=== PATIENT | female | born 1980 | race Caucasian/White ===

== ENCOUNTER 2020-10-19 14:13 | Emergency (ER) | payer OTHER, MEDICARE, SELFPAY ==
[2020-10-19 14:19] VITALS: BP 157/97; PULSE 96; RESP 18; TEMP 37.1; O2SAT 96; BMI 33.4
[2020-10-19] MEDS: EPINEPHrine 1 mg/mL INJ 0.3 MG IM (14:49)
[2020-10-19 14:52] VITALS: BP 163/121; PULSE 99; RESP 24; O2SAT 100
[2020-10-19] MEDS: famotidine 20 mg/2 mL INJ 40 MG IVP (15:03)
[2020-10-19] MEDS: diphenhydrAMINE 50 mg/mL SDV 1mL 25 MG IVP (15:03)
[2020-10-19] MEDS: sodium chloride 0.9% 1,000 ML 999 ML IV (15:04)
--- NOTE | 2020-10-19 15:07 | ED_ITS ---
HPI - Allergic Reaction General: Chief complaint: Allergic Reaction Stated complaint: 6 BEE STINGS - ALLERGIC TO BEES Time Seen by Provider: 10/19/20 14:23 Source: patient Mode of arrival: ambulatory Limitations: no limitations History of Present Illness: HPI narrative: 40-year-old female patient presents to the emergency department with bee stings to the face and left arm. She has previous history of yellowjacket stings which led to anaphylaxis and hospitalization in the past. She states does not carry an EpiPen due to financial constraints. She has not taken [id number] medication prior to arrival. She reports her face is hurting her jaw is hurting and her lip is starting to swell. MD complaint: allergic reaction, hives and facial swelling Onset (ago): minute(s) (30) Exposure: insect bite Associated symptoms: Reports facial swelling and lip swelling; Deny abdominal pain, nausea or vomiting Severity: moderate Treatment prior to arrival: none Previous Allergic Reaction History: prior ED visit(s) and anaphylaxis Review of Systems General: Reports: 10 or more systems reviewed and unremarkable except in HPI and below Const: Denies: fever(s), chills or diaphoresis Eyes: Denies: blurry vision or eye redness ENMT: Denies: throat pain, dental pain or disequilibrium Card: Denies: chest pain, palpitations or irregular heart rhythm Resp: Denies: dyspnea, productive cough, non-productive cough or wheezing GI: Denies: abdominal pain, nausea or vomiting : Denies: difficulty voiding or dysuria Musc: Denies: neck pain, back pain or joint pain Skin/Breast: Reports: skin tenderness, skin swelling and changes in skin color; Denies: rash or pruritus Neuro: Denies: headache(s), weakness in extremities or behavioral changes Psych: Reports: anxiety; Denies: depression, sleeping more or change in appetite Shawn/Lymph: Denies: easy bruising All/Imm: Reports: facial swelling PFS ED PFSH: Medical History (Updated 10/19/20 @ 15:45 by LOUIE Wharton) Anaphylactic reaction Physical Exam Const: COMMON NORMALS: no acute distress, patient oriented x3, healthy appearing and well nourished GENERAL APPEARANCE: cooperative, anxious and well hydrated ORIENTATION/CONSCIOUSNESS: Yes awake, Yes oriented to person, Yes oriented to place and Yes oriented to time HENMT: COMMON NORMALS: normocephalic, EAC's normal, Normal external nose present and moist oral mucous membranes HEAD & SCALP: normal to inspection and normocephalic FACE & SINUS: sinuses nontender, erythema bilaterally, edema (lip and chin) on the left and Facial tenderness on exam of face and sinuses bilaterally NOSE: Normal external nose present and No nasal polyps present EXTERNAL AUDITORY CANAL: EAC's normal MOUTH: tongue normal and lip abnormal (edema to the upper lateral lip) THROAT: tonsils normal, uvula midline and posterior oropharynx abnormal cobblestoning and erythema Eye: COMMON NORMALS: Equal, round and reactive pupils present and EOMs intact bilaterally GENERAL EYE: appearance normal, both eyes and all related structures ALIGNMENT: Yes alignment normal PERIORBITAL: periorbital findings normal SCLERA: scleral abnormal Laterality of scleral abnormality: positive bilateral scleral injection PUPIL: Yes Equal, round and reactive pupils present Neck/C-Spine: COMMON NORMALS: full ROM and no lymphadenopathy GENERAL: Yes normal visual inspection and Yes trachea midline CERVICAL SPINE: Yes cervical ROM normal Lymph: LYMPHATIC: no lymphadenopathy noted Chest: COMMONS NORMALS: normal inspection of the chest and normal palpation of entire chest wall Resp: COMMON NORMALS: normal respiratory effort, No retractions, No use of accessory muscles and clear to auscultation bilaterally EFFORT & INSPECTION: Yes able to speak in complete sentences AUSCULTATION: clear to auscultation bilaterally Cardio: COMMON NORMALS: regular rate, regular rhythm, S1 normal heart sound present, S2 normal heart sound present and Peripheral pulses 2+ throughout RATE: regular rate RHYTHM: regular rhythm HEART SOUNDS: S1 normal heart sound present and S2 normal heart sound present PERIPHERAL PULSES: Peripheral pulses 2+ throughout GI: COMMON NORMALS: Normal to inspection, nondistended, normoactive bowel sounds present, Soft to palpation and non-tender INSPECTION: Yes normal to inspection PALPATION: Yes Soft to palpation : COMMON NORMALS: Yes no CVA tenderness BLADDER/KIDNEY EXAM: Yes no CVA tenderness Back/Pelvis: COMMON NORMALS: no CVA tenderness and thoracic and lumbar spine normal to inspection Extremity: COMMON NORMALS: normal to inspection, full ROM, capillary refill normal and no pedal edema GENERAL: Yes normal exam except as noted Neuro: COMMON NORMALS: patient oriented x3 and no focal motor deficits SENSORIUM/ORIENTATION: Yes oriented to person, Yes oriented to place and Yes oriented to time Psych: COMMON NORMALS: mental status grossly normal, Normal thought process present and cooperative ACTIVITY/MOTOR BEHAVIOR: Yes appropriate eye contact THOUGHT PROCESS: Normal thought process present Skin: COMMON NORMALS: no rashes or lesions noted, no wounds, turgor normal, no petechiae and no mottling GENERAL SKIN EXAM: no rashes or lesions noted, elasticity normal and turgor normal OTHER: left medial elbow with edema from bee sting, skin erythema/edema localized Course Vital Signs: Vital signs: Vital Signs Temperature 98.7 F 10/19/20 14:19 Pulse Rate 98 10/19/20 16:54 Respiratory Rate 18 10/19/20 16:54 Blood Pressure 121/76 10/19/20 16:54 Pulse Oximetry 97 10/19/20 16:54 MDM - Allergic Reaction MDM Narrative: Medical decision making narrative: 40 year old female presents to the ED with allergic reaction, facial swelling and lip swelling after sustaining bee stings. She received IM epinephrine due to h/o anaphylaxis, she also received Solu-Medrol, Benadryl and Pepcid. She received Toradol due to onset of headache. She has history of migraines. During her stay, facial swelling, lip swelling completely resolved, her face returned to normal color. Redness of the skin resolved. Oxygen saturation remained 96 to 100%. Her headache resolved with Toradol. She is no longer complaining of headache or jaw pain. She was kept for 3 hours here in the ED, she was prescribed EpiPen in the event she is stung by further wasp/bees. Discharge Plan Discharge Patient Disposition: Home Clinical Impression: Accidental bee sting, H/O anaphylactic shock Allergic reaction Qualifiers: Encounter type: initial encounter Qualified Code(s): T78.40XA - Allergy, unspecified, initial encounter Condition: Stable Prescriptions: New epinephrine 0.3 mg/0.3 mL auto-injector 0.3 mg IM Q10M PRN (Reason: allergic reaction) Qty: 2 RF: 0 No Action duloxetine 20 mg capsule,delayed release(DR/EC) 40 mg PO DAILY@2200 RF: 0 Discharge Orders: Discharge ED (Routine); Ordered 10/19/20 Ordered By: Darlin Waite Discharge Diet: Usual diet Discharge Activity: Limit activity as instructed Patient Instructions: Insect Bite or Sting (ED), Anaphylaxis (ED), Opioid Safety Activity Restrictions/Additional Instructions: Return to the emergency department if you develop difficulty breathing, fever or nausea vomiting Rest at home today, cool compresses to the insect bite/bee stings to help with swelling and pain Benadryl 25 mg tablet; take 1 to 2 tablets every 4-6 hours as needed for pain/itching Coding Level of Care Code ED Plug Saw Operator for Deondre Fwd Exam Comprehensive
[2020-10-19 16:17] VITALS: BP 136/83; PULSE 97; RESP 18; O2SAT 98
[2020-10-19] MEDS: ketorolac 30 mg/mL INJ 15 MG IVP (16:18)
[2020-10-19 16:54] VITALS: BP 121/76; PULSE 98; RESP 18; O2SAT 97
[2020-10-19 17:56] VITALS: BP 145/82; PULSE 117; RESP 17; O2SAT 98
== END 2020-10-19 17:57 | disposition home or self-care (01) ==
PROVIDERS: Emergency Provider Nurse Practitioner Family
DX: T63.441A Toxic effect of venom of bees, accidental (unintentional), initial encounter (principal)
CPT/HCPCS: 96361; 96372; 96374; 96375; 99284; 99291; J0171; J1200; J1885; J2930; J3490; J7030

== ENCOUNTER 2023-03-30 09:25 | Emergency (ER) | payer BC, SELFPAY, MEDICARE ==
--- NOTE | 2023-03-30 09:33 | XR_ITS ---
WS: [id number] EXAMINATION: XR chest 1V portable [id number] REASON FOR EXAM: dyspnea/cough COMPARISON: None available. ORDER DATE: 03/30/2023 9:34 AM TECHNIQUE: A single, portable frontal chest x-ray was obtained. X-RAY FINDINGS: The lungs are clear. Pleural spaces are clear. No pleural effusions or pneumothorax. Cardiomediastinal silhouette is normal. No evidence for pulmonary edema. Soft tissue and osseous structures are unremarkable. No tubes or lines are present. IMPRESSION: Unremarkable frontal portable chest x-ray.
--- NOTE | 2023-03-30 09:33 | ECG_ITS ---
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 Measurements Intervals [place] Rate: 102 P: 57 [place]: 149 QRS: 66 QRSD: 95 T: 44 QT: 364 QTc: 475 Interpretive Statements SINUS TACHYCARDIA No previous ECG available for comparison Electronically Signed On 03-30-2023 10:28:16 CDT by Mandy Guillen M.D. [id number]
[2023-03-30 09:34] VITALS: BP 154/111; PULSE 106; RESP 24; TEMP 36.8; O2SAT 99; BMI 34.0
[2023-03-30 09:56] LABS: Basophils # 0.1 10^3/uL (0.0-0.1); Basophils % 0.8 %; Eosinophils # 0.2 10^3/uL (0.0-0.8); Eosinophils % 3.7 %; Hematocrit 35.4 % (36-47); Lymphocytes # 0.7 10^3/uL (0.8-4.8); Lymphocytes % 11.3 %; Mean Corpuscular HGB Conc 29.1 g/dL (30-55); Mean Corpuscular Hemoglobin 22.6 pg (27-33); Mean Corpuscular Volume 77.6 fl (85-98); Mean Platelet Volume 9.6 fL (7.4-10.4); Monocytes # 0.4 10^3/uL (0.2-0.9); Monocytes % 6.8 %; Neutrophils # 4.56 10^3/uL (1.8-7.7); Neutrophils % 77.2 %; Nucleated Red Blood Cells % 0 %; Platelet Count 395 10^3/cmm (157-399); Red Blood Count 4.56 10^6/uL (3.85-5.65); White Blood Count 5.91 10^3/uL (3.29-11.43)
[2023-03-30 10:06] VITALS: BP 154/111; PULSE 118; O2SAT 96
[2023-03-30 10:13] LABS: Alanine Aminotransferase 15 U/L (0-33); Albumin Level 4.5 g/dL (3.5-5.2); Alkaline Phosphatase 101 U/L (35-105); Anion Gap 18.1 (5-19); Aspartate Amino Transferase 16 U/L (0-32); Blood Urea Nitrogen 14 mg/dL (6-20); Calcium 9.1 mg/dL (8.5-10.5); Carbon Dioxide 20 mmol/L (22-29); Chloride 107 mmol/L (98-107); Globulin 3.5 g/dL (1.3-4.6); Glomerular Filtration Rate 91.3 mL/min (90-130); Glucose 109 mg/dL (65-115); Osmolality Calculated 293 mOsm/kg (285-295); Potassium 4.1 mmol/L (3.5-5.1); Sodium 141 mmol/L (136-145); Total Bilirubin 0.2 mg/dL (0.15-1.2)
--- NOTE | 2023-03-30 10:20 | W.ED.SOB ---
HPI - SOB/Dyspnea General: Chief Complaint: Shortness of Breath/Dyspnea Stated Complaint: sob, low 02 Time Seen by Provider: 03/30/23 09:32 Source: patient Mode of arrival: ambulatory History of Present Illness: HPI Narrative: 42-year-old female who presents to the emergency room with complaints of cough and shortness of breath and came in the room patient was actively hyperventilating. Reviewing the chart we ordered a little bit of lab work. She with extremely anxious over the prospect of having her blood drawn. She has a history of COPD. She has had a little bit of increase in productive cough recently. There is a spot on her lung that is being monitored. She also had a mastectomy earlier this year. MD elicited complaint: shortness of breath and cough Pertinent past history: COPD Onset (ago): day(s) Timing: constant Severity: moderate Exacerbating factors: exertion and coughing Relieving factors: rest Known history of: COPD Associated symptoms: Reports chest congestion; Deny abdominal pain, chest pain, cough, diaphoresis, dizziness, extremity pain, fever(s), hemoptysis, lightheadedness, myalgias, nausea, orthopnea, palpitations, paresthesias, polydipsia, polyuria, rash, sense of impending doom, syncope or vomiting Related Data: Home oxygen amount: none Review of Systems Const: Denies: fever(s), chills or diaphoresis ENMT: Denies: throat pain, ear or mastoid pain, nasal discharge or nasal congestion Card: Denies: chest pain, palpitations, lightheadedness, syncope or orthopnea Resp: Reports: dyspnea, productive cough, wheezing and chest congestion; Denies: hemoptysis GI: Denies: abdominal pain, nausea or vomiting : Denies: flank pain, difficulty voiding, dysuria, urinary frequency or urinary urgency Musc: Denies: extremity pain Skin/Breast: Denies: rash or pruritus Neuro: Denies: dizziness Endo: Denies: polyuria or polydipsia PFSH ED PFSH: Medical History Anaphylactic reaction Perforation of left tympanic membrane Viral upper respiratory infection Social History Smoking and tobacco status: former smoker Physical Exam Const: GENERAL APPEARANCE: cooperative and comfortable ORIENTATION/CONSCIOUSNESS: Yes awake, Yes oriented to person, Yes oriented to place and Yes oriented to time HENMT: COMMON NORMALS: normocephalic, atraumatic and hearing grossly normal bilaterally HEAD & SCALP: normocephalic and atraumatic Resp: COMMON NORMALS: normal respiratory effort, No retractions and No use of accessory muscles AUSCULTATION: rhonchi and wheezes Cardio: COMMON NORMALS: regular rate, regular rhythm and No murmurs present (Cardio) RATE: regular rate RHYTHM: regular rhythm GI: COMMON NORMALS: Soft to palpation and No hepatosplenomegaly present AUSCULTATION: Yes normoactive bowel sounds PALPATION: Yes Soft to palpation, No Tenderness to palpation present (GI), No Guarding due to palpation present (GI) and Yes No hepatosplenomegaly present Extremity: COMMON NORMALS: normal to inspection, capillary refill normal, no clubbing, cyanosis or edema, no calf tenderness and no pedal edema Neuro: SENSORIUM/ORIENTATION: Yes oriented to person, Yes oriented to place and Yes oriented to time Skin: COMMON NORMALS: no rashes or lesions noted GENERAL SKIN EXAM: no rashes or lesions noted Course Vital Signs: Vital signs: Vital Signs Temperature 98.3 F 03/30/23 09:34 Pulse Rate 92 03/30/23 11:44 Respiratory Rate 22 H 03/30/23 10:37 Blood Pressure 154/111 03/30/23 10:06 Pulse Oximetry 93 03/30/23 11:44 Oxygen Delivery Me thod Room Air 03/30/23 11:44 MDM - SOB/Dyspnea Medical Decision Making Labs and imaging reviewed no pneumothorax no pneumonia no widening mediastinum. She not having any chest pain her blood pressure is much better her breathing is slowed down when she first arrived she was hyperventilating. That has improved. Nebulizer did improve her breathing will discharge home on doxycycline she does report a little bit increase in productive cough. Also discharge her on a steroid taper albuterol to use as needed. Medical Records I reviewed the patient's medical records. Lab Data I reviewed the patient's lab results. 03/30/23 09:50 03/30/23 09:50 Labs/Radiology: Laboratory Results WBC 5.91 10^3/uL (3.29-11.43) 03/30/23 09:50 RBC 4.56 10^6/uL (3.85-5.65) 03/30/23 09:50 Hgb 10.30 g/dL (11.27-16.99) L 03/30/23 09:50 Hct 35.4 % (36-47) L 03/30/23 09:50 MCV 77.6 fl (85-98) L 03/30/23 09:50 MCH 22.6 pg (27-33) L 03/30/23 09:50 MCHC 29.1 g/dL (30-55) L 03/30/23 09:50 RDW 19.0 % (12.1-15.1) H 03/30/23 09:50 Plt Count 395 10^3/cmm (157-399) 03/30/23 09:50 MPV 9.6 fL (7.4-10.4) 03/30/23 09:50 Neut % (Auto) 77.2 % 03/30/23 09:50 Lymph % (Auto) 11.3 % 03/30/23 09:50 Thomas % (Auto) 6.8 % 03/30/23 09:50 Eos % (Auto) 3.7 % 03/30/23 09:50 Baso % (Auto) 0.8 % 03/30/23 09:50 Neut # (Auto) 4.56 10^3/uL (1.8-7.7) 03/30/23 09:50 Lymph # (Auto) 0.7 10^3/uL (0.8-4.8) L 03/30/23 09:50 Thomas # (Auto) 0.4 10^3/uL (0.2-0.9) 03/30/23 09:50 Eos # (Auto) 0.2 10^3/uL (0.0-0.8) 03/30/23 09:50 Baso # (Auto) 0.1 10^3/uL (0.0-0.1) 03/30/23 09:50 Nucleated RBC % (auto) 0 % 03/30/23 09:50 Nucleated RBCs # 0.0 /100WBC 03/30/23 09:50 Sodium 141 mmol/L (136-145) 03/30/23 09:50 Potassium 4.1 mmol/L (3.5-5.1) 03/30/23 09:50 Chloride 107 mmol/L (98-107) 03/30/23 09:50 Carbon Dioxide 20 mmol/L (22-29) L 03/30/23 09:50 Anion Gap 18.1 (5-19) 03/30/23 09:50 BUN 14 mg/dL (6-20) 03/30/23 09:50 Creatinine 0.7 mg/dL (0.5-0.9) 03/30/23 09:50 GFR Calculation 91.3 mL/min (90-130) 03/30/23 09:50 Glucose 109 mg/dL (65-115) 03/30/23 09:50 Calculated Osmolality 293 mOsm/kg (285-295) 03/30/23 09:50 Calcium 9.1 mg/dL (8.5-10.5) 03/30/23 09:50 Total Bilirubin 0.2 mg/dL (0.15-1.2) 03/30/23 09:50 AST 16 U/L (0-32) 03/30/23 09:50 ALT 15 U/L (0-33) 03/30/23 09:50 Alkaline Phosphatase 101 U/L (35-105) 03/30/23 09:50 Total Protein 8.0 g/dL (6.6-8.7) 03/30/23 09:50 Albumin 4.5 g/dL (3.5-5.2) 03/30/23 09:50 Globulin 3.5 g/dL (1.3-4.6) 03/30/23 09:50 SARS-CoV-2 Ag (Rapid) Negative (Negative) 03/30/23 10:28 All radiology interpretation(s) finalized by discharge Discharge Plan Discharge Patient Disposition: Home Clinical Impression: Acute exacerbation of chronic obstructive airways disease Condition: Stable Prescriptions: New doxycycline hyclate 100 mg capsule 100 mg PO BID 10 Days Qty: 20 0RF prednisone 20 mg tablet 20 mg PO TID Qty: 15 0RF Rx Instructions: 1 p.o. 3 times daily x3 days, 1 p.o. twice daily x2 days, 1 p.o. daily x2 days albuterol sulfate 90 mcg/actuation HFA aerosol inhaler 2 inh INHALATION Q4H PRN (Reason: shortness of breath or wheezing) Qty: 18 0RF No Action epinephrine 0.3 mg/0.3 mL auto-injector 0.3 mg IM Q10M PRN (Reason: allergic reaction) Qty: 2 0RF Rx Instructions: use as needed to the thigh for bee sting buspirone 5 mg tablet 5 mg PO TID PRN (Reason: Anxiety) ipratropium-albuterol 0.5 mg-3 mg(2.5 mg base)/3 mL solution for nebulization 3 ml INHALATION TID PRN (Reason: Shortness Of Breath) phentermine 37.5 mg tablet 37.5 mg PO QAM albuterol sulfate 90 mcg/actuation HFA aerosol inhaler 2 puff INHALATION Q6H PRN (Reason: Shortness Of Breath) duloxetine 60 mg capsule,delayed release(DR/EC) 60 mg PO BEDTIME Discharge Orders: Discharge ED (Routine); Ordered 03/30/23 Ordered By: Jerod Davis Referrals: Hoda Sanchez [Primary Care Provider] - Discharge Diet: Usual diet Patient Instructions: COPD (Chronic Obstructive Pulmonary Disease) (ED), Opioid Safety, Pain Management Activity Restrictions/Additional Instructions: Follow-up with your primary care doctor within the week. Coding Level of Care Code ED Paper Guillotine Operator for Deondre Lemus
[2023-03-30] MEDS: dexamethasone 10 mg/mL INJ IM (10:35)
[2023-03-30] MEDS: ipratropium-albuterol 3 mL Neb INHALATION (10:36)
[2023-03-30 10:37] VITALS: PULSE 90; RESP 22; O2SAT 96
[2023-03-30 10:40] VITALS: PULSE 87
[2023-03-30 11:14] LABS: SARS Covid-2 Antigen Negative (Negative)
[2023-03-30 11:44] VITALS: PULSE 92; O2SAT 93
== END 2023-03-30 12:40 | disposition home or self-care (01) ==
PROVIDERS: Emergency Provider Family Medicine; PCP Registered Nurse
DX: J44.1 Chronic obstructive pulmonary disease with (acute) exacerbation (principal); Z87.891 Personal history of nicotine dependence; Z11.52 Encounter for screening for COVID-19
CPT/HCPCS: 36415; 71045; 80053; 85025; 87426; 93005; 94640; 96372; 99285; J1100

== ENCOUNTER 2023-03-30 18:22 | Inpatient (IN) | payer BC, MEDICARE, SELFPAY ==
[2023-03-30] VITALS (13 sets, daily range): BP systolic 106–173; BP diastolic 77–123; PULSE 96–134; RESP 18–40; TEMP 36.7; O2SAT 90–95; BMI 33.4
--- NOTE | 2023-03-30 18:39 | ED_ITS ---
HPI - SOB/Dyspnea General: Chief Complaint: Shortness of Breath/Dyspnea Stated Complaint: OC Levels Low Sent by Time Seen by Provider: 03/30/23 18:29 Source: patient and family Mode of arrival: ambulatory Limitations: no limitations History of Present Illness: HPI Narrative: Patient was seen in this emergency department today and discharged after treatment and establishment of no acute emergency medical condition. She apparently obtained a pulse oximeter after discharge and was became concerned because her pulse oximetry was approximately 90% or thereabouts this caused her to return to the emergency department because of those concerns. She has a past history of COPD. She also has a past history of anxiety disorder. She reports significant and increased use of her nebulizer and metered-dose inhaler over the last 24 hours. 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 They attempted to undergo work-up at the [facility] but that was not completed at that time and subsequently has not had any follow-up. She has a longstanding history of allergies to both environmental and other's noxious stimulants. She has pets in the home but these are none of them new to her. She does not use tobacco. Known history of: COPD and asthma Associated symptoms: Reports cough and lightheadedness; Deny chest pain, extremity pain, fever(s), nausea or vomiting Related Data: Home oxygen amount: none Review of Systems Const: Denies: fever(s) or chills Eyes: Denies: change in vision ENMT: Denies: odynophagia, nasal discharge or nasal congestion Card: Reports: lightheadedness; Denies: chest pain or irregular heart rhythm Resp: Reports: dyspnea, non-productive cough and wheezing; Denies: productive cough GI: Denies: nausea, vomiting or diarrhea Musc: Denies: neck pain, back pain, extremity pain or extremity swelling Skin/Breast: Denies: rash Neuro: Denies: headache(s), numbness in extremities or weakness in extremities Psych: Reports: anxiety PFSH ED PFSH: Medical History Anaphylactic reaction Perforation of left tympanic membrane Viral upper respiratory infection Social History Smoking and tobacco status: former smoker Physical Exam Narrative: EXAM NARRATIVE: Upon my arrival to the exam room the patient was noted to be hyperventilating and very anxious and an extremis due to concerns about possible interventions in the emergency department. Const: COMMON NORMALS: alert GENERAL APPEARANCE: anxious HENMT: COMMON NORMALS: normocephalic, atraumatic, Normal nasal mucous membranes and turbinates present, moist oral mucous membranes and oropharynx normal HEAD & SCALP: normocephalic and atraumatic NOSE: Normal nasal mucous membranes and turbinates present Eye: COMMON NORMALS: Equal, round and reactive pupils present, EOMs intact bilaterally and conjunctivae normal CONJUNCTIVA: Yes conjunctivae normal PUPIL: Yes Equal, round and reactive pupils present Neck/C-Spine: COMMON NORMALS: full ROM, no lymphadenopathy, supple, no JVD and No carotid bruits Chest: COMMONS NORMALS: normal inspection of the chest and normal palpation of entire chest wall Resp: EFFORT & INSPECTION: Yes tachypneic AUSCULTATION: wheezes Cardio: COMMON NORMALS: no JVD, regular rate, regular rhythm and Peripheral pulses 2+ throughout RATE: regular rate RHYTHM: regular rhythm PERIPHERAL PULSES: Peripheral pulses 2+ throughout GI: COMMON NORMALS: Normal to inspection, nondistended, normoactive bowel sounds present, Soft to palpation and non-tender PALPATION: Yes Soft to palpation : COMMON NORMALS: Yes no CVA tenderness BLADDER/KIDNEY EXAM: Yes no CVA t enderness Back/Pelvis: COMMON NORMALS: no CVA tenderness, thoracic and lumbar spine normal to inspection and no thoracic nor lumbar tenderness Extremity: COMMON NORMALS: normal to inspection, full ROM, capillary refill normal, no calf tenderness and no pedal edema Neuro: KAVITA COMA SCALE: document GCS findings COMMON NORMALS: moves all extremities, no focal motor deficits and no sensory deficits noted SENSORIUM/ORIENTATION: Yes alert Psych: COMMON NORMALS: mental status grossly normal MOOD & AFFECT: Yes anxious Skin: COMMON NORMALS: no rashes or lesions noted, no wounds and turgor normal GENERAL SKIN EXAM: no rashes or lesions noted and turgor normal Course Reevaluation(s): Reevaluation #1: Patient still requiring 2 to 3 L of oxygen to maintain her saturations are 92 to 94% range. CTA is pending. We were adding steroids and additional neb treatment to her therapy while awaiting that imaging study. No evidence of other ongoing medical conditions at this time other than her underlying anxiety. Time: 22:28 Reevaluation #2: I informed patient and spouse of current diagnosis and plan of care. She still oxygen requiring and therefore inpatient care is appropriate at this time. Time: 22:54 Consultations: Consultation #1: Call placed to Dr. Diaz on-call hospitalist who will call back to review the case with the attending emergency physician overnight Time: 22:55 Vital Signs: Vital signs: Vital Signs Temperature 98.1 F 03/30/23 18:30 Pulse Rate 105 H 03/30/23 22:42 Respiratory Rate 18 03/30/23 22:37 Blood Pressure 106/88 03/30/23 22:30 Pulse Oximetry 94 03/30/23 22:42 Oxygen Delivery Me thod Nasal Cannula 03/30/23 22:37 Oxygen Flow Rate 3 03/30/23 22:37 MDM - SOB/Dyspnea Medical Decision Making This patient returns to the emergency department. She has a history of COPD and was seen earlier today with increasing wheezing cough and underlying anxiety as well. She was treated and discharged on an oral regimen. She apparently obtained a pulse oximetry after leaving here and returned because she was concerned that she could not keep her pulse oximetry much higher than 90% on room air. She had no associated chest pain or fevers. Her past history is remarkable for bilateral mastectomy due to being BRCA gene positive. He has had no history of coronary disease congestive heart failure etc. On presentation the patient was quite anxious she was given Ativan and an as well as nebulization treatments. She still required supplemental oxygen to keep her pulse oximetry in normal range. Additional work-up to that that was done earlier today was engaged to include a BNP and D-dimer. Her D-dimer was slightly elevated over the age-related cutoff and while she had no significant risk factors other than a question of whether she had some underlying history of tumor in her chest a CT scan a was obtained. She also was given the benefit of additional bronchodilator therapy and to include magnesium which she only got half of the 2 g dose because she felt like it irritated her veins in addition to steroids and beta agonist. Chest CT did reveal evidence of pneumonia and given her oxygen requirement she is being admitted for IV antibiotics and additional therapy as indicated. No indication of pulmonary embolus. There are other changes that will need to be followed up on but will not affect her acute care at this time Medical Records I reviewed the patient's medical records. Reviewed ED evaluation from earlier the same date Lab Data I reviewed the patient's lab results. 03/30/23 19:35 Labs/Radiology: Radiology Impressions Chest CTA 03/30/23 20:15 IMPRESSION: 1. No evidence for pulmonary embolus. 2. Multiple small consolidations in both lungs most likely represents multilobar pneumonia. 3. Ground-glass opacity in the right upper lobe is most likely pneumonia. 4. Clustered nodules in the right lower lobe, the largest measuring 11 mm. These are unchanged for 9 months. For patients at low risk (minimal or absent history of smoking and of other known risk factors) consider CT Chest at 18-24 months. For patients at high risk (history of smoking or of other known risk factors), recommend CT Chest at 3-6 months, then CT Chest at 18-24 months. (Reference: Wilma) References: Wilma H, et al. Guidelines for Management of Incidental Pulmonary Nodules Detected on CT Images: From the Fleischner Society 2017. Radiology. 2017;284(1):228-243. Laboratory Results D-Dimer 0.73 ug/mLFEU (0-0.59) H 03/30/23 19:35 Sodium 139 mmol/L (136-145) 03/30/23 19:35 Potassium 4.4 mmol/L (3.5-5.1) 03/30/23 19:35 Chloride 103 mmol/L (98-107) 03/30/23 19:35 Carbon Dioxide 19 mmol/L (22-29) L 03/30/23 19:35 Anion Gap 21.4 (5-19) H 03/30/23 19:35 BUN 9 mg/dL (6-20) 03/30/23 19:35 Creatinine 0.7 mg/dL (0.5-0.9) 03/30/23 19:35 GFR Calculation 91.3 mL/min (90-130) 03/30/23 19:35 Glucose 163 mg/dL (65-115) H 03/30/23 19:35 Calculated Osmolality 290 mOsm/kg (285-295) 03/30/23 19:35 Calcium 9.5 mg/dL (8.5-10.5) 03/30/23 19:35 NT-Pro-B Natriuret Pep 157 pg/mL (0-125) H 03/30/23 19:35 TSH 1.29 uIU/mL (0.27-4.20) 03/30/23 19:35 All radiology interpretation(s) finalized by discharge EKG Data EKG 1: I personally reviewed and interpreted this EKG as follows: Interpretation: Resting EKG reveals a ventricular rate of 110 bpm. Consistent with sinus tachycardia. She has normal OR interval, QRS duration, corrected QT interval. She has a leftward axis. She has enlargement of the P wave and limb lead II suggestive of left atrial enlargement. No other acute ST-T wave changes. Discharge Plan Discharge Patient Disposition: Admitted As Inpatient Clinical Impression: Community acquired pneumonia, COPD exacerbation, Anxiety Condition: Stable Coding Level of Care Code ED Tie Binder for Deondre Lemus
--- NOTE | 2023-03-30 18:46 | PC.NURSE ---
ATTEMPTED PT IV UPON ARRIVING IN ROOM. VEIN IN LEFT AC WAS ATTEMPTED. PRIOR TO START PT WOULD NOT RELAX ARM AND STARTED FREAKING OUT ABOUT THE NEEDLE. I TOLD PT EVEN THOUGH SHE HAD BLOOD WORK DONE TODAY AND HAD AN IV EARLIER IN THE ER SHE WAS BACK AGAIN AND WE HAD TO RECHECK HER AND HAVE THE IV INCASE WE NEEDED TO GIVE HER MEDS QUICK. I ATTEMPTED THE IV AND GOT FLASH AND SOON I TRIED TO ADVANCE CATH PT TENSED UP AND WITHDREW ARM AND VEIN BLEW, I TRIED TO ADVANCE NEEDLE PAST TO SAVE THE SITE BUT PT WOULD NOT ALLOW IT SO I REMOVED NEEDLE AND CATH AND APPLIED COBAN
[2023-03-30] MEDS: LORazepam 1 mg Tablet PO (19:00)
--- NOTE | 2023-03-30 19:26 | ECG_ITS ---
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 Measurements Intervals Mitchell Rate: 110 P: 61 NM: 136 QRS: 75 QRSD: 94 T: 59 QT: 320 QTc: 434 Interpretive Statements SINUS TACHYCARDIA POSSIBLE LEFT ATRIAL ENLARGEMENT [-0.1mV P-WAVE IN V1/V2] ANTEROSEPTAL MYOCARDIAL INFARCTION , OF INDETERMINATE AGE [40+ ms Q WAVE IN V1-V4] Compared to ECG 03/30/2023 09:35:06 Myocardial infarct finding now present Electronically Signed On 03-30-2023 23:42:53 CDT by Saran Grimes M.D. [id number]
[2023-03-30 20:02] LABS: D Dimer 0.73 ug/mLFEU (0-0.59)
[2023-03-30] MEDS: LORazepam 2 mg/mL INJ 1 mL 1 MG IVP ×2 (20:04→22:59)
[2023-03-30 20:13] LABS: Anion Gap 21.4 (5-19); Blood Urea Nitrogen 9 mg/dL (6-20); Calcium 9.5 mg/dL (8.5-10.5); Carbon Dioxide 19 mmol/L (22-29); Chloride 103 mmol/L (98-107); Glomerular Filtration Rate 91.3 mL/min (90-130); Glucose 163 mg/dL (65-115); NT Pro B Type Natriuretic Pept 157 pg/mL (0-125); Osmolality Calculated 290 mOsm/kg (285-295); Potassium 4.4 mmol/L (3.5-5.1); Sodium 139 mmol/L (136-145); Thyroid Stimulating Hormone 1.29 uIU/mL (0.27-4.20)
--- NOTE | 2023-03-30 20:15 | CTR_ITS ---
PROCEDURE INFORMATION: Exam: CTA Chest With Contrast Exam date and time: 03/30/2023 9:36 PM Age: 42 years old Clinical indication: Shortness of breath; Prior surgery; Surgery date: 6+ months; Surgery type: Double masectomy; Additional info: SOB and elevated dimer TECHNIQUE: Imaging protocol: Computed tomographic angiography of the chest with contrast. Exam focused on the arteries. 3D rendering (Not supervised by radiologist): MIP and/or 3D reconstructed images were created by the technologist. Radiation optimization: All CT scans at this facility use at least one of these dose optimization techniques: automated exposure control; mA and/or kV adjustment per patient size (includes targeted exams where dose is matched to clinical indication); or iterative reconstruction. Contrast material: OMNI 350; Contrast volume: 100 ml; Contrast route: INTRAVENOUS (IV); REPORTING DATA: Count of CT and Cardiac NM exams in prior 12 months: This patient has received [address] and 0 known cardiac nuclear medicine studies in the 12 months prior to the current study. COMPARISON: CT chest [facility] [id number] 06/24/2022 8:49 AM RADIATION DOSE METRICS: Total DLP (mGy-cm): 481 FINDINGS: Pulmonary arteries: Normal. No pulmonary emboli. Aorta: Unremarkable. No aortic aneurysm. No aortic dissection. Lungs: 4 mm right middle lobe nodule. Stable clustered nodules in the right lower lobe, the largest 11 mm. Small focal consolidations in the medial lower lobes and medial left upper lobe. Mild ground-glass opacity in the medial right upper lobe. Pleural spaces: Unremarkable. No pneumothorax. No pleural effusion. Heart: Unremarkable. No cardiomegaly. No pericardial effusion. Lymph nodes: Prominent mediastinal and hilar lymph nodes are most likely reactive. Liver: Diffusely in homogeneous liver. Gallbladder and bile ducts: Cholecystectomy. Stomach and bowel: Large sliding hiatal/gastric hernia. Postsurgical changes of the proximal stomach. Bones/joints: Thoracic curvature. Mild degenerative changes. No acute fracture. Soft tissues: Bilateral breast implants. CT/CT angio chest PE protcl [id number] IMPRESSION: 1. No evidence for pulmonary embolus. 2. Multiple small consolidations in both lungs most likely represents multilobar pneumonia. 3. Ground-glass opacity in the right upper lobe is most likely pneumonia. 4. Clustered nodules in the right lower lobe, the largest measuring 11 mm. These are unchanged for 9 months. For patients at low risk (minimal or absent history of smoking and of other known risk factors) consider CT Chest at 18-24 months. For patients at high risk (history of smoking or of other known risk factors), recommend CT Chest at 3-6 months, then CT Chest at 18-24 months. (Reference: Wilma) References: Wilma Kerr, et al. Guidelines for Management of Incidental Pulmonary Nodules Detected on CT Images: From the Fleischner Society 2017. Radiology. 2017;284(1):228-243.
[2023-03-30] MEDS: ipratropium-albuterol 3 mL Neb INHALATION ×2 (20:22→22:37)
[2023-03-30] MEDS: magnesium sulfate premix 2 GM/50 ML PIGGYBACK IV (20:39)
[2023-03-30] MEDS: iohexol 350 mg/mL 500 mL Btl (per mL) IV (22:00)
[2023-03-30] MEDS: methylPREDNISolone sod succ 125 MG in water for injection-sterile 2 ML 24 MG IVP (22:22)
[2023-03-31] VITALS (18 sets, daily range): BP systolic 118–149; BP diastolic 73–86; PULSE 89–113; RESP 16–30; TEMP 36.6–36.9; O2SAT 91–100
--- NOTE | 2023-03-31 00:13 | PM.HP ---
Providers/Chief Complaint Admitting Physician: Kwadwo Selby MD Primary Care Provider: Hoda Sanchez Chief Complaint: OC Levels Low Sent by History of Present Illness Carin Miller is a 42 year old female with a past medical history of pulmonary nodules, evaluated at the cancer [facility], she was told that they were infectious related, but has not followed up in over 2 years, she was supposed to follow-up with Dr. Israel, history of psoriatic arthritis, history of Niesen fundoplication, history of laparoscopic hiatal hernia repair, history of bilateral prophylactic mastectomy for BRCA positive gene, history of marijuana use, who presents to [facility] due to a month history of shortness of breath, but significantly worsened in the last 48 hours with shortness of breath, cough, fatigue, malaise. Patient tells me for the last few years or so she has had shortness of breath, with wheezing, and cough, she tells me that ever since she did the cancer [facility] and they did an extensive evaluation for her, she has persistent shortness of breath, cough. She denies a diagnosis of COPD. No history of smoking. Does use marijuana. She does report a laparoscopic hiatal hernia repair and Mulu fundoplication with persistent hiatal hernia. Denies any dysphagia. Denies a history of asthma. 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, he thinks that that has to potentially play a role of why she has all these pulmonary nodules Review of Systems Const: Reports: fever(s), chills, body aches, fatigue and malaise Eyes: Denies: change in vision ENMT: Denies: throat pain Card: Denies: chest pain Resp: Reports: dyspnea and productive cough GI: Denies: abdominal pain : Denies: flank pain or difficulty voiding Musc: Denies: neck pain or back pain Neuro: Denies: headache(s) Medications/Allergies Home Medications Medication Instructions Recorded Confirmed Last Taken Type epinephrine 0.3 mg/0.3 mL 0.3 mg (0.3 mL) IM Q10M PRN 10/19/20 03/30/23 Unknown Rx injection, auto-injector allergic reaction #2 ea albuterol sulfate 90 mcg/actuation 2 puff inhalation Q6H PRN 03/30/23 03/30/23 Unknown History aerosol inhaler Shortness Of Breath buspirone 5 mg tablet 5 mg PO TID PRN Anxiety 03/30/23 03/30/23 Unknown History doxycycline hyclate 100 mg capsule 100 mg PO BID 10 days #20 caps 03/30/23 Unknown Rx duloxetine 60 mg capsule,delayed 60 mg PO BEDTIME 03/30/23 03/30/23 03/29/23 History release ipratropium 0.5 mg-albuterol 3 mg 3 ml inhalation TID PRN Shortness 03/30/23 03/30/23 03/30/23 History (2.5 mg base)/3 mL nebulization Of Breath soln phentermine 37.5 mg tablet 37.5 mg PO QAM 03/30/23 03/30/23 03/26/23 History prednisone 20 mg tablet 20 mg PO TID #15 tabs 03/30/23 Unknown Rx Allergies Allergy/AdvReac Type Severity Reaction Status Date / Time tramadol Allergy Unknown Verified 03/30/23 18:34 PFSH Acute PFSH: Medical History (Updated 03/31/23 @ 00:15 by Kwadwo Selby MD) Anaphylactic reaction Perforation of left tympanic membrane Viral upper respiratory infection Surgical History (Updated 03/31/23 @ 00:16 by Kwadwo Selby MD) History of bilateral mastectomy History of cholecystectomy Family History (Updated 03/31/23 @ 00:17 by Kwadwo Selby MD) Mother Diabetes Hypertension Social History (Updated 03/31/23 @ 00:17 by Kwadwo Selby MD) Smoking and tobacco status: former smoker Alcohol intake: never Substance/Drug Use: current Substance/Drug use type: Marijuana Vitals/I&O/Wt Last Vital Signs Temp 98.1 F 03/30/23 18:30 Pulse 106 H 03/30/23 23:32 Resp 30 H 03/30/23 23:32 BP 125/77 03/30/23 23:32 Pulse Ox 91 03/30/23 23:32 O2 Del Method Nasal Cannula 03/30/23 23:32 O2 Flow Rate 3 03/30/23 23:32 Weight last 48 hrs Weight 99.79 kg Physical Exam Const: COMMON NORMALS: no acute distress and patient oriented x3 GENERAL APPEARANCE: cooperative, well kempt and well developed HENMT: COMMON NORMALS: normocephalic and Normal external nose present HEAD & SCALP: normocephalic FACE & SINUS: normal facial exam NOSE: Normal external nose present MOUTH: Normal oral and palatal mucosa present Eye: COMMON NORMALS: Equal, round and reactive pupils present, EOMs intact bilaterally, conjunctivae normal and no scleral icterus CONJUNCTIVA: Yes conjunctivae normal PUPIL: Yes Equal, round and reactive pupils present Neck/C-Spine: COMMON NORMALS: full ROM, no lymphadenopathy, no JVD, Thyroid normal and No carotid bruits THYROID: Thyroid normal Lymph: LYMPHATIC: no lymphadenopathy noted Chest: COMMONS NORMALS: normal inspection of the chest Resp: COMMON NORMALS: normal respiratory effort, No retractions and No use of accessory muscles AUSCULTATION: wheezes Cardio: COMMON NORMALS: regular rate, regular rhythm, S1 normal heart sound present, S2 normal heart sound present, No murmurs present (Cardio) and Peripheral pulses 2+ throughout RATE: regular rate RHYTHM: regular rhythm HEART SOUNDS: S1 normal heart sound present and S2 normal heart sound present PERIPHERAL PULSES: Peripheral pulses 2+ throughout GI: COMMON NORMALS: Normal to inspection, nondistended, normoactive bowel sounds present, Soft to palpation and non-tender : BLADDER/KIDNEY EXAM: Yes no CVA tenderness Back/Pelvis: COMMON NORMALS: no CVA tenderness Extremity: COMMON NORMALS: normal to inspection, full ROM, no calf tenderness and no pedal edema Neuro: COMMON NORMALS: patient oriented x3, CN's II-XII intact bilaterally, moves all extremities, no focal motor deficits and no sensory deficits noted MENINGEAL SIGNS: Yes no meningeal signs Psych: COMMON NORMALS: mental status grossly normal, Normal thought process present, cooperative and speech normal APPEARANCE: Yes well kempt SPEECH: Yes normal speech THOUGHT PROCESS: Normal thought process present OTHER: She is a bit drowsy as she has received Ativan but can respond to questions appropriately Skin: COMMON NORMALS: turgor normal and no jaundice GENERAL SKIN EXAM: turgor normal Data 03/30/23 19:35 A&P Assessment and plan (1) History of multiple pulmonary nodules: (2) History of prophylactic mastectomy of both breasts: (3) BRCA gene mutation positive: (4) Anxiety: (5) Pneumonia: Plan Pneumonia, with hypoxia -Chest CTA? 03/30/23 20:15 IMPRESSION: 1. No evidence for pulmonary embolus. 2. Multiple small consolidations in both lungs most likely represents multilobar pneumonia. 3. Ground-glass opacity in the right upper lobe is most likely pneumonia. 4. Clustered nodules in the right lower lobe, the largest measuring 11 mm.? These are unchanged for 9 months.? For patients at low risk (minimal or absent history of smoking and of other known risk factors) consider CT Chest at 18-24 months. For patients at high risk (history of smoking or of other known risk factors), recommend CT Chest at 3-6 months, then CT Chest at 18-24 months. (Reference: Wilma) -Possibility of bird fanciers lung? Will discuss the case with pulmonary in a.m. -The other thought is with her history of laparoscopic hiatal hernia repair, Vito fundoplication, with x-ray evidence of persistence of sliding hiatal hernia, could be recurrent aspiration pneumonia, aspiration pneumonitis? We will do speech therapy eval, aspiration precautions, consider barium swallow, and pulmonary evaluation in a.m. -Nonetheless she is in need to follow-up with pulmonary as outpatient -Continue Rocephin, continue azithromycin ? Sputum cultures, blood cultures, respiratory viral panel, urine bacterial antigens ? ESR, CRP, Pro-Jose ? ELIZA, rheumatoid, has a history of psoriatic arthritis, she follows with rheumatology in 2011, has not followed up since then ? Budesonide, ipratropium -Continue Solu-Medrol 40 mg IV push every 8 hours ? Full code ? Protonix for GI prophylaxis ? Lovenox for DVT prophylaxis Attestations Medical Necessity Statement*: Patient requires hospitalization, inpatient, greater than 2 midnights, for pneumonia, with hypoxia Diagnoses History of multiple pulmonary nodules Z87.898 History of prophylactic mastectomy of both breasts Z90.13 BRCA gene mutation positive Z15.01; Z15.09 Anxiety F41.9 Pneumonia J18.9
--- NOTE | 2023-03-31 00:38 | PC.NURSE ---
Azithromycin infusing as patient arrived to the floor from the ED. Infusion completed approximately 10 minutes after patient arrived to her room.
--- NOTE | 2023-03-31 00:40 | PC.NURSE ---
Patient refusing labs to be drawn at this time.
--- NOTE | 2023-03-31 00:50 | PC.NURSE ---
Addendum entered by Trinity Perez RN 03/31/23 00:56: Patient states she cannot eat oats, bread, sugar, pork, grains. Original Note: Patient states she cannot have anything bubbly to drink because of a surgery she had on her stomach. Patient states she uses Marjuana and melatonin to sleep at home. Dr. Selby notified that pateint is asking for something for sleep. Dr. Selby notified that patient refused labs and began crying when lab came in to draw blood. Patient states I have really bad anxiety when it comes to needles.
[2023-03-31] MEDS: azithromycin 500 MG in sodium chloride 0.9% 250 ML 250 MG IV ×2 (00:51→23:10)
--- NOTE | 2023-03-31 00:53 | PC.NURSE ---
The patient refused to allow lab to draw her blood cultures at this time. Physician notified.
--- NOTE | 2023-03-31 00:54 | PC.NURSE ---
Zithromax admin issue. There was duplicate azithromycin order and I cancelled the wrong duplicate. To correct the error it was now scanned and infused only a minute apart. The medication was started at approximately 2330 and finished around 0030 on [facility] floor.
[2023-03-31] MEDS: sodium chloride 0.9% 1,000 ML 75 ML IV ×2 (01:00→15:22)
[2023-03-31] MEDS: cefTRIAXone 2,000 MG in sodium chloride 0.9% (plus) 50 ML 100 MG IV (01:00)
[2023-03-31] MEDS: hyDROXYzine 25 mg Capsule PO (01:07)
[2023-03-31] MEDS: BuSPIRONE 10 mg Tablet 5 MG PO ×2 (01:07→09:13)
[2023-03-31] MEDS: duloxetine 60 mg Capsule PO ×2 (01:07→20:55)
[2023-03-31 02:08] LABS: Erythrocyte Sedimentation Rate 42 mm/hr (0-15)
[2023-03-31 02:22] LABS: HIV 1 & 2 Antibody Non-Reactive (Non-Reactiv); HIV 1 & 2 Antigen Non-Reactive (Non-Reactiv)
[2023-03-31 02:34] LABS: Estmated Average Glucose 123; Hemoglobin A1C 5.9 % (4.0-6.0)
[2023-03-31 02:37] LABS: Hepatitis A Antibody IgM Non-Reactive (Nonreactive); Hepatitis B Core IgM Non-Reactive (Nonreactive); Hepatitis B Surface Antigen Non-Reactive (Nonreactive); Hepatitis C Virus Antibody Non-Reactive (Nonreactive)
[2023-03-31 02:38] LABS: Procalcitonin 0.07 ng/mL (0-0.5); Thyroid Stimulating Hormone 1.37 uIU/mL (0.27-4.20)
[2023-03-31 02:50] LABS: C Reactive Protein 19.1 mg/L (0.0-4.9)
[2023-03-31] MEDS: ipratropium-albuterol 3 mL Neb INHALATION ×6 (03:05→23:53)
[2023-03-31] MEDS: budesonide 0.5 mg/2 mL Neb INHALATION ×2 (07:40→20:10)
--- NOTE | 2023-03-31 07:41 | PC.PHAR ---
Addendum entered by Sara Palma 03/31/23 07:46: PT STATES HAS LAST TAKEN HOME MEDS ON THURSDAY. 03/29 Original Note: PT DISCHARGED FROM ED ON THURSDAY, PURCHASED A PULSE OX MACHINE AND RETURNED FOR SAME ISSUE. PT HAS TAKEN HER MORNING DOSE OF NEW RX DOXYCYCLINE 100 MG HERE. 03/31/23
[2023-03-31] MEDS: pantoprazole DR 40 mg Tablet PO (09:08)
[2023-03-31] MEDS: methylPREDNISolone sod succ 40 MG in water for injection-sterile 1 ML 12 MG IVP ×2 (09:09→16:34)
--- NOTE | 2023-03-31 09:23 | PC.CHAP ---
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 [] Patient/Family/Request visit [] Outpatient visit [] Follow-up visit [] Physician referral [] Code/Alert [x] Routine visit [] Staff referral [] Actively dying [] Patient sleeping [] Family support [] [] Out of room [] Palliative care [] [] Receiving care in room [] Pre-surgical visit [] Trauma [] Long length of stay [] ICU visit [] Other: Relational/Emotional Strength [x] Patient feels connected with others/family/visitors/staff [] Distress [] Loneliness/isolation [] Abandonment Spirituality of Patient [x] Person of Ana [] Attends Yarsani of their Ana [x] Believes in Prayer [] Reads Bible or Pentecostalism materials [] There are Spiritual issues to be addressed Development Professional Interventions [x] Prayer [] Active listening [] Non-anxious presence [x] Spiritual/emotional support [] Crisis/trauma care [] Spiritual counseling [] Bereavement support [] Provided bereavement packet [] Provided Bible/devotional materials [] Provided toy/stuffed animal, coloring book to patient or family member [] Provided Communion [] Anointing/[place] [] Salvation [x] Completed spiritual assessment [] Other: Impact on Illness or Injury [] Angry [] Fearful [] Anxious [] Often cries [] Exhaustion [] Unable to work [] Unable to attend scientologist [] Unable to walk/stand [] Unable to read [] Unable to drive [] Unable to eat/drink [] Unable to sleep [] Unable to be with family [] Patient intubated [] Other: Summary Time spent with patient 5 min
[2023-03-31 10:11] LABS: Hematocrit 31.9 % (36-47); Mean Corpuscular HGB Conc 30.4 g/dL (30-55); Mean Corpuscular Volume 75.6 fl (85-98); Mean Platelet Volume 9.7 fL (7.4-10.4); Platelet Count 447 10^3/cmm (157-399); Red Blood Count 4.22 10^6/uL (3.85-5.65); Red Cell Distribution Width 19.1 % (12.1-15.1); White Blood Count 15.14 10^3/uL (3.29-11.43)
[2023-03-31 10:38] LABS: Anion Gap 16.1 (5-19); Blood Urea Nitrogen 14 mg/dL (6-20); Calcium 8.9 mg/dL (8.5-10.5); Carbon Dioxide 20 mmol/L (22-29); Chloride 105 mmol/L (98-107); Glomerular Filtration Rate 91.3 mL/min (90-130); Glucose 185 mg/dL (65-115); Osmolality Calculated 289 mOsm/kg (285-295); Potassium 4.1 mmol/L (3.5-5.1); Sodium 137 mmol/L (136-145)
[2023-03-31 11:50] LABS: Urine Appearance Clear (CLEAR); Urine Color Yellow (Yellow)
[2023-03-31 11:51] LABS: Blood Urine 2+ (Negative); Glucose Urine UA Norm (Normal); Ketones Urine Negative (Negative); Nitrate Urine Negative (Negative); Protein Urine Neg (Negative); Specific Gravity, Urine 1.015 (1.005-1.030); pH Urine 5 (5-7)
[2023-03-31 11:52] LABS: Add Urine Microscopic? YES; Bacteria Urine TRACE /hpf; Bilirubin Urine Neg (Negative); Leukocyte Esterase Urine Negative (Negative); RBC Urine 0-4 /hpf (0-2); Squamous Epithelial Cell Urine 0-4 /hpf (0-5); Urobilinogen Urine Norm (Negative); WBC Urine 0-4 /hpf (0-5)
[2023-03-31 11:57] LABS: Adenovirus Not Detected (NOT DETECT); Chlamydia Pneumoniae Not Detected (NOT DETECT); Coronavirus 229E,HKU1,NL63,OC4 Not Detected (NOT DETECT); Human Metapneumovirus Not Detected (NOT DETECT); Human Rhinovirus/Enterovirus Detected (NOT DETECT); Influenza A Not Detected (NOT DETECT); Influenza A H1 Not Detected (NOT DETECT); Influenza A H1-2009 Not Detected (NOT DETECT); Influenza A H3 Not Detected (NOT DETECT); Influenza B Not Detected (NOT DETECT); Mycoplasma Pneumoniae Not Detected (NOT DETECT); Parainfluenza Virus Type 1 Not Detected (NOT DETECT); Parainfluenza Virus Type 2 Not Detected (NOT DETECT); Parainfluenza Virus Type 3 Not Detected (NOT DETECT); Parainfluenza Virus Type 4 Not Detected (NOT DETECT); Respiratory Syncytial Virus A Not Detected (NOT DETECT); Respiratory Syncytial Virus B Not Detected (NOT DETECT); SARS-COV-2 Not Detected (NOT DETECT)
[2023-03-31 12:05] LABS: Total Cells Counted 100 (0-100)
[2023-03-31 12:06] LABS: Absolute Neutrophil 13.2 10^3/cmm (1.4-6.5); Absolute Segmented Neutrophil 13.2 10/cmm (1.6-7.1); Eosinophils 0 %; Lymphocytes 9 %; Lymphocytes Absolute 1.4 10^3/cmm (1.2-3.4); Monocytes Absolute 0.3 10^3/cmm (0.1-0.6); Platelet Estimate Increased (Normal); Segmented Neutrophils 87 %
[2023-03-31 12:07] LABS: Giant Platelets Trace
[2023-03-31 12:11] LABS: Anisocytosis 1+; Poikilocytosis 1+
--- NOTE | 2023-03-31 16:35 | PM.PN ---
Subjective Subjective: She is currently experiencing wheezing to auscultation bilaterally. States that her breathing is slightly better compared to last night. Vitals/I&O/Wt Last Vital Signs Temp 98.1 F 03/31/23 12:00 Pulse 103 H 03/31/23 15:54 Resp 16 03/31/23 15:54 BP 122/73 03/31/23 12:00 Pulse Ox 98 03/31/23 15:54 O2 Del Method Nasal Cannula 03/31/23 15:54 O2 Flow Rate 3 03/31/23 15:54 03/31/23 03/31/23 03/31/23 06:59 14:59 22:59 Intake Total 472 / 472 721 / 721 1000 / 1721 Balance 472 / 472 721 / 721 1000 / 1721 Weight last 48 hrs Weight 99.79 kg Physical Exam Narrative: General: No acute distress, AO x3 HEENT: PERRLA, pupils bilaterally equal and reactive, pallors not present Chest: Wheezing to auscultation bilaterally all areas CVS: S1-S2 regular, no murmurs, no tachycardia, no gallops, no rubs Abdomen: Soft, nontender, no organomegaly, bowel sounds present Neuro: No focal deficits, no facial deformity, AO x3, power 5/5 in all limbs Data 03/31/23 09:56 03/31/23 09:56 Micro: Microbiology 03/31/23 10:01 Blood Culture - Preliminary Blood SPECIMEN COLLECTED 03/31/23 09:56 Blood Culture - Preliminary Blood SPECIMEN COLLECTED A&P Assessment and plan (1) History of multiple pulmonary nodules: (2) History of prophylactic mastectomy of both breasts: (3) BRCA gene mutation positive: (4) Anxiety: (5) Pneumonia: (6) COPD exacerbation: Plan 42-year-old lady with a past medical history of asthma/COPD diagnosed several years ago, history of BRCA mutation requiring prophylactic bilateral mastectomies with strong family history of breast cancer. She has a history of known bilateral pulmonary nodules of unclear etiology, biopsy was expected to be performed about 2 years ago. Patient has had significant delays in care for a variety of personal reasons. She has not yet had any biopsy or bronchoscopic evaluation for the same She presents currently with worsening hypoxia with O2 sats noted to be in the low 80s at home. She does have evidence of bilateral wheezing bilaterally. Currently patient appears to be experiencing a bout of acute on chronic COPD exacerbation which may have been triggered by an acute viral illness versus a flare of her reactive airway disease. She has not had a PFT repeated in several years. Patient states typically with an exacerbation she uses her nebulizer with DuoNeb and finds symptomatic relief however presented to the hospital currently when she did not have relief with the usual measures. She does not typically wear oxygen but is currently requiring between 2 to 3 L/min supplemental O2. Given her COPD exacerbation she is being treated currently with scheduled nebulization with DuoNeb every 4 hours and with budesonide 0.5 mg twice daily. Additionally she is on methylprednisolone 40 mg IV every 8 hours Possibility of atypical pneumonia versus bacterial bronchitis not excluded for which patient is currently on empiric antibiotic coverage. In the background there is a more chronic process with her bilaterally seen pulmonary nodules which require further evaluation as outpatient. She has a known history of fibromyalgia, further autoimmune work-up has been sent with the pending ELIZA panel. Formal allergy testing to be completed outpatient with pulmonology. She has several exotic birds as pets at home including peacocks. 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 Will evaluate for possibility of fungal infections by checking serum markers for BD glucan, Aspergillus galactoManan, Coccidioides serology, urine histoplasma antigen, histoplasma serology, serum cryptococcal antigen. Discussed with the patient that definitive diagnosis would likely involve bronchoscopic cultures and cytology for which we will refer her to pulmonology. Overall these pulmonary nodules appear to be unchanged compared to July 2021. Attestations Medical Necessity Statement*: Continued admission for acute on chronic COPD exacerbation, need for IV steroids, scheduled nebulization and antibiotics Coding Level of Care Code Acute Code for Chg Fwd Diagnoses History of multiple pulmonary nodules Z87.898 History of prophylactic mastectomy of both breasts Z90.13 BRCA gene mutation positive Z15.01; Z15.09 Anxiety F41.9 Pneumonia J18.9 COPD exacerbation J44.1
[2023-03-31] MEDS: cefTRIAXone 1,000 MG in sodium chloride 0.9% (plus) 50 ML 100 MG IV (22:20)
[2023-04-01] VITALS (9 sets, daily range): BP systolic 116–137; BP diastolic 71–80; PULSE 76–98; RESP 16–18; TEMP 36.5–36.7; O2SAT 93–98
[2023-04-01] MEDS: methylPREDNISolone sod succ 40 MG in water for injection-sterile 1 ML 12 MG IVP ×2 (00:51→08:31)
[2023-04-01] MEDS: ipratropium-albuterol 3 mL Neb INHALATION ×2 (03:32→08:12)
[2023-04-01] MEDS: sodium chloride 0.9% 1,000 ML 75 ML IV (06:01)
[2023-04-01] MEDS: budesonide 0.5 mg/2 mL Neb INHALATION (08:12)
[2023-04-01] MEDS: pantoprazole DR 40 mg Tablet PO (08:32)
[2023-04-01 09:09] LABS: Basophils % 0.2 %; Hematocrit 33.7 % (36-47); Lymphocytes # 1.3 10^3/uL (0.8-4.8); Lymphocytes % 7.6 %; Mean Corpuscular HGB Conc 29.4 g/dL (30-55); Mean Corpuscular Hemoglobin 22.8 pg (27-33); Mean Corpuscular Volume 77.6 fl (85-98); Mean Platelet Volume 9.7 fL (7.4-10.4); Monocytes # 0.5 10^3/uL (0.2-0.9); Monocytes % 2.7 %; Neutrophils # 15.75 10^3/uL (1.8-7.7); Neutrophils % 88.7 %; Nucleated Red Blood Cells % 0 %; Platelet Count 483 10^3/cmm (157-399); Red Blood Count 4.34 10^6/uL (3.85-5.65); Red Cell Distribution Width 19.3 % (12.1-15.1); White Blood Count 17.73 10^3/uL (3.29-11.43)
[2023-04-01 09:39] LABS: Anion Gap 17.2 (5-19); Blood Urea Nitrogen 16 mg/dL (6-20); Carbon Dioxide 22 mmol/L (22-29); Chloride 101 mmol/L (98-107); Glomerular Filtration Rate 78.3 mL/min (90-130); Glucose 167 mg/dL (65-115); Osmolality Calculated 287 mOsm/kg (285-295); Potassium 4.2 mmol/L (3.5-5.1); Sodium 136 mmol/L (136-145)
[2023-04-01 11:39] LABS: COMPLEMENT COMPONENT C3C 190 mg/dL (83-193); COMPLEMENT COMPONENT C4C 33 mg/dL (15-57)
[2023-04-01 12:05] LABS: CENTROMERE B ANTIBODY <1.0 NEG AI (<1.0 NEG); JO-1 ANTIBODY <1.0 NEG AI (<1.0 NEG); RNP ANTIBODY <1.0 NEG AI (<1.0 NEG); SCL-70 ANTIBODY <1.0 NEG AI (<1.0 NEG); SJOGREN'S ANTIBODY (SS-A) <1.0 NEG AI (<1.0 NEG); SM ANTIBODY <1.0 NEG AI (<1.0 NEG); SS-B <1.0 NEG AI (<1.0 NEG)
[2023-04-01 12:28] LABS: COMPLEMENT, TOTAL (CH50) >60 U/mL (31-60)
--- NOTE | 2023-04-01 13:08 | PC.NURSE ---
Discharge Note Patient discharged to home via private vehicle accompanied by . Discharge instructions reviewed with patient and/or loan servicing representative. Mobile pharmacy medications and/or prescriptions provided. Belongings/home medications returned.
--- NOTE | 2023-04-01 16:01 | PM.DCS ---
Discharge Providers Date of Admission: 03/30/23 23:44 Date of Discharge: April 01, 2023 Attending Provider at Admission: Kwadwo Selby MD Attending Provider at Discharge: Tanika Lan MD Primary Care Provider: Hoda Sanchez Diagnoses at Discharge Discharge Diagnosis (1) History of multiple pulmonary nodules: Status: Acute (2) History of prophylactic mastectomy of both breasts: Status: Acute (3) BRCA gene mutation positive: Status: Acute (4) Anxiety: Status: Acute (5) Pneumonia: Status: Acute (6) COPD exacerbation: Status: Acute Reason for Visit Reason for Visit: OC Levels Low Sent by Dr Montelongo Course Hospital Course 42-year-old lady with a past medical history of asthma/COPD diagnosed several years ago, history of BRCA mutation requiring prophylactic bilateral mastectomies with strong family history of breast cancer. She has a history of known bilateral pulmonary nodules of unclear etiology, biopsy was expected to be performed about 2 years ago.? Patient has had significant delays in care for a variety of personal reasons.? She has not yet had any biopsy or bronchoscopic evaluation for the same She presented currently with worsening hypoxia with O2 sats noted to be in the low 80s at home.? She does have evidence of bilateral wheezing bilaterally. Currently patient appears to be experiencing a bout of acute on chronic COPD exacerbation likely triggered by acute enterovirus/rhinovirus infection. She received treatment with iv steroids, scheduled nebulization. She initailly required supplemental 02 but was able to be weaned down to room air at discharge. Possibility of atypical pneumonia versus bacterial bronchitis not excluded for which patient is currently on empiric antibiotic coverage which is continued at discharge. In the background there is a more chronic process with her bilaterally seen pulmonary nodules which require further evaluation as outpatient with pulmonology. Physical Exam Narrative: General: No acute distress, AO x3 HEENT: PERRLA, pupils bilaterally equal and reactive, pallors not present Chest: Normal vesicular breath sounds, no added sounds, equal good air entry bilaterally CVS: S1-S2 regular, no murmurs, no tachycardia, no gallops, no rubs Abdomen: Soft, nontender, no organomegaly, bowel sounds present Neuro: No focal deficits, no facial deformity, AO x3, power 5/5 in all limbs Discharge Data Studies Completed and Pending Completed Studies During Hospitalization Category Date Time Status CTA chest [CT angio chest PE protcl [id number]] Stat Cat Scan 03/30/23 20:15 Completed Pending at discharge Category Date Time Status ELIZA Profile Rheumatology Stat Lab 03/31/23 09:56 Results Blastomyces AB Panel CF and ID Routine Lab 03/31/23 09:56 Received Blood Culture Stat Lab 03/31/23 10:01 Results Coccidioides AB CF Serum Routine Lab 03/31/23 09:56 Received Fungitell Glucan Assay (Blood) Routine Lab 03/30/23 19:35 Received GALACTOMANAN [Aspergillus AG,EIA,Serum] Routine Lab 03/31/23 10:14 Received Histoplasma Antibody Immunodif Routine Lab 03/31/23 09:56 Received Histoplasma Galactomannan Ag Routine Lab 03/31/23 10:57 Received Histoplasma Quantitative AG Routine Lab 03/31/23 10:57 Received Sputum Culture and Gram Stain Stat Lab 03/31/23 15:55 Results Radiology Impressions Chest CTA 03/30/23 20:15 IMPRESSION: 1. No evidence for pulmonary embolus. 2. Multiple small consolidations in both lungs most likely represents multilobar pneumonia. 3. Ground-glass opacity in the right upper lobe is most likely pneumonia. 4. Clustered nodules in the right lower lobe, the largest measuring 11 mm. These are unchanged for 9 months. For patients at low risk (minimal or absent history of smoking and of other known risk factors) consider CT Chest at 18-24 months. For patients at high risk (history of smoking or of other known risk factors), recommend CT Chest at 3-6 months, [address] Chest at 18-24 months. (Reference: Wilma) References: Wilma H, et al. Guidelines for Management of Incidental Pulmonary Nodules Detected on CT Images: From the Fleischner Society 2017. Radiology. 2017;284(1):228-243. Laboratory Results WBC 17.73 10^3/uL (3.29-11.43) H 04/01/23 09:00 RBC 4.34 10^6/uL (3.85-5.65) 04/01/23 09:00 Hgb 9.90 g/dL (11.27-16.99) L 04/01/23 09:00 Hct 33.7 % (36-47) L 04/01/23 09:00 MCV 77.6 fl (85-98) L 04/01/23 09:00 MCH 22.8 pg (27-33) L 04/01/23 09:00 MCHC 29.4 g/dL (30-55) L 04/01/23 09:00 RDW 19.3 % (12.1-15.1) H 04/01/23 09:00 Plt Count 483 10^3/cmm (157-399) H 04/01/23 09:00 MPV 9.7 fL (7.4-10.4) 04/01/23 09:00 Neut % (Auto) 88.7 % 04/01/23 09:00 Lymph % (Auto) 7.6 % 04/01/23 09:00 [place] % (Auto) 2.7 % 04/01/23 09:00 Eos % (Auto) 0.0 % 04/01/23 09:00 Baso % (Auto) 0.2 % 04/01/23 09:00 Neut # (Auto) 15.75 10^3/uL (1.8-7.7) H 04/01/23 09:00 Lymph # (Auto) 1.3 10^3/uL (0.8-4.8) 04/01/23 09:00 [place] # (Auto) 0.5 10^3/uL (0.2-0.9) 04/01/23 09:00 Eos # (Auto) 0.0 10^3/uL (0.0-0.8) 04/01/23 09:00 Baso # (Auto) 0.0 10^3/uL (0.0-0.1) 04/01/23 09:00 Nucleated RBC % (auto) 0 % 04/01/23 09:00 Total Counted 100 (0-100) 03/31/23 09:56 Atypical Lymphs % 0.0 % (0-5) 03/31/23 09:56 Absolute Neutrophils 13.2 10^3/cmm (1.4-6.5) H 03/31/23 09:56 Segmented Neutrophils 87 % 03/31/23 09:56 Abs Segm Neuts (Man) 13.2 10/cmm (1.6-7.1) H 03/31/23 09:56 Band Neutrophils 0.0 % 03/31/23 09:56 Abs Band Neuts (Man) 0.0 10^3/cmm (0.0-1.2) 03/31/23 09:56 Absolute Lymphocytes 1.4 10^3/cmm (1.2-3.4) 03/31/23 09:56 Lymphocytes (Manual) 9 % 03/31/23 09:56 Monocytes (Manual) 2.0 % 03/31/23 09:56 Absolute Monocytes 0.3 10^3/cmm (0.1-0.6) 03/31/23 09:56 Eosinophils (Manual) 0 % 03/31/23 09:56 Absolute Eosinophils 0.0 10^3/cmm (0.0-0.7) 03/31/23 09:56 Basophils (Manual) 0.0 % 03/31/23 09:56 Absolute Basophils 0.0 10^3/cmm (0.0-0.2) 03/31/23 09:56 Myelocytes 1.0 % 03/31/23 09:56 Nucleated RBCs 1.0 /100WBC (0-1) 03/31/23 09:56 Nucleated RBCs # 0.0 /100WBC 04/01/23 09:00 Platelet Estimate Increased (Normal) H 03/31/23 09:56 Giant Platelets Trace 03/31/23 09:56 Poikilocytosis 1+ H 03/31/23 09:56 Anisocytosis 1+ H 03/31/23 09:56 ESR 42 mm/hr (0-15) H 03/30/23 09:50 D-Dimer 0.73 ug/mLFEU (0-0.59) H 03/30/23 19:35 Sodium 136 mmol/L (136-145) 04/01/23 09:00 Potassium 4.2 mmol/L (3.5-5.1) 04/01/23 09:00 Chloride 101 mmol/L (98-107) 04/01/23 09:00 Carbon Dioxide 22 mmol/L (22-29) 04/01/23 09:00 Anion Gap 17.2 (5-19) 04/01/23 09:00 BUN 16 mg/dL (6-20) 04/01/23 09:00 Creatinine 0.8 mg/dL (0.5-0.9) 04/01/23 09:00 GFR Calculation 78.3 mL/min (90-130) L 04/01/23 09:00 Glucose 167 mg/dL (65-115) H 04/01/23 09:00 Estimat Average Glucose 123 03/30/23 09:50 Hemoglobin A1c 5.9 % (4.0-6.0) 03/30/23 09:50 Calculated Osmolality 287 mOsm/kg (285-295) 04/01/23 09:00 Calcium 9.0 mg/dL (8.5-10.5) 04/01/23 09:00 C-Reactive Protein 19.1 mg/L (0.0-4.9) H 03/30/23 19:35 NT-Pro-B Natriuret Pep 157 pg/mL (0-125) H 03/30/23 19:35 Procalcitonin 0.07 ng/mL (0-0.5) 03/30/23 19:35 TSH 1.29 uIU/mL (0.27-4.20) 03/30/23 19:35 TSH 1.37 uIU/mL (0.27-4.20) 03/30/23 19:35 Urine Color Yellow (Yellow) 03/31/23 10:57 Urine Appearance Clear (CLEAR) 03/31/23 10:57 Urine pH 5 (5-7) 03/31/23 10:57 Ur Specific [place] 1.015 (1.005-1.030) 03/31/23 10:57 Urine Protein Neg (Negative) 03/31/23 10:57 Urine Glucose (UA) Norm (Normal) 03/31/23 10:57 Urine Ketones Negative (Negative) 03/31/23 10:57 Urine Blood 2+ (Negative) H 03/31/23 10:57 Urine Nitrate Negative (Negative) 03/31/23 10:57 Urine Bilirubin Neg (Negative) 03/31/23 10:57 Urine Urobilinogen Norm mg/dL (Negative) 03/31/23 10:57 Ur Leukocyte Esterase Negative (Negative) 03/31/23 10:57 Urine RBC 0-4 /hpf (0-2) H 03/31/23 10:57 Urine WBC 0-4 /hpf (0-5) H 03/31/23 10:57 Ur Squamous Epith Cells 0-4 /hpf (0-5) H 03/31/23 10:57 Amorphous Sediment Not Reportable 03/31/23 10:57 Urine Bacteria Trace /hpf (NONE) 03/31/23 10:57 Nasal Influ A H1 2009 PCR Not detected (NOT DETECT) 03/31/23 09:25 FCO-1 Antibody <1.0 neg AI (<1.0 NEG) 03/31/23 09:56 SS-A Antibody <1.0 neg AI (<1.0 NEG) 03/31/23 09:56 SS-B Antibody <1.0 neg AI (<1.0 NEG) 03/31/23 09:56 Sm ([place]) Antibody <1.0 neg AI (<1.0 NEG) 03/31/23 09:56 TANK INSULATOR RUBBER Antibody <1.0 neg AI (<1.0 NEG) 03/31/23 09:56 Scl-70 Antibody <1.0 neg AI (<1.0 NEG) 03/31/23 09:56 Centromere B Antibody <1.0 neg AI (<1.0 NEG) 03/31/23 09:56 Complement C3c 190 mg/dL (83-193) 03/31/23 09:56 Complement C4c 33 mg/dL (15-57) 03/31/23 09:56 CH50 Classical Pathway >60 U/mL (31-60) H 03/31/23 09:56 Adenovirus (PCR) Not detected (NOT DETECT) 03/31/23 09:25 C. pneumoniae DNA (PCR) Not detected (NOT DETECT) 03/31/23 09:25 Coronavirus 229E (PCR) Not detected (NOT DETECT) 03/31/23 09:25 Hepatitis A IgM Ab Non-reactive (Nonreactive) 03/30/23 19:35 Hep Bs Antigen Non-reactive (Nonreactive) 03/30/23 19:35 Hep B Core IgM Ab Non-reactive (Nonreactive) 03/30/23 19:35 Hepatitis C Antibody Non-reactive (Nonreactive) 03/30/23 19:35 HIV 1&2 Ab & HIV 1 Ag Non-reactive (Non-Reactiv) 03/30/23 19:35 HIV 1&2 Antibody Non-reactive (Non-Reactiv) 03/30/23 19:35 Human Metapneumovir PCR Not detected (NOT DETECT) 03/31/23 09:25 Influenza A (H1) PCR Not detected (NOT DETECT) 03/31/23 09:25 Influenza A (H3) PCR Not detected (NOT DETECT) 03/31/23 09:25 Influenza Type A (PCR) Not detected (NOT DETECT) 03/31/23 09:25 Influenza Type B (PCR) Not detected (NOT DETECT) 03/31/23 09:25 M. pneumoniae (PCR) Not detected (NOT DETECT) 03/31/23 09:25 Parainfluenza 1 (PCR) Not detected (NOT DETECT) 03/31/23 09:25 Parainfluenza 2 (PCR) Not detected (NOT DETECT) 03/31/23 09:25 Parainfluenza 3 (PCR) Not detected (NOT DETECT) 03/31/23 09:25 Parainfluenza 4 (PCR) Not detected (NOT DETECT) 03/31/23 09:25 RSV Type A (PCR) Not detected (NOT DETECT) 03/31/23 09:25 RSV Type B (PCR) Not detected (NOT DETECT) 03/31/23 09:25 Entero/Rhino (PCR) Detected (NOT DETECT) A 03/31/23 09:25 SARS-CoV-2 (PCR) Not detected (NOT DETECT) 03/31/23 09:25 Vitals Last Vital Signs Temp 98.0 F 04/01/23 13:07 Pulse 76 04/01/23 13:07 Resp 18 04/01/23 13:07 BP 137/80 04/01/23 13:07 Pulse Ox 94 04/01/23 13:07 O2 Del Method Room Air 04/01/23 11:23 O2 Flow Rate 2 04/01/23 08:14 Discharge Plan Discharge Patient Disposition: Home Condition: Stable Prescriptions: New pantoprazole 40 mg Tablet,Delayed Release (Dr/Ec) 40 mg PO DAILY 30 Days Qty: 30 0RF budesonide 0.5 mg/2 mL Suspension For Nebulization 0.5 mg inhalation BID.RESPIRATORY 7 Days Qty: 28 0RF levofloxacin 750 mg tablet 750 mg PO DAILY 5 Days Qty: 5 0RF Continued epinephrine 0.3 mg/0.3 mL auto-injector 0.3 mg IM Q10M PRN (Reason: allergic reaction) Qty: 2 0RF Rx Instructions: use as needed to the thigh for bee sting buspirone 5 mg tablet 5 mg PO TID PRN (Reason: Anxiety) phentermine 37.5 mg tablet 37.5 mg PO QAM albuterol sulfate 90 mcg/actuation HFA aerosol inhaler 2 puff INHALATION Q6H PRN (Reason: Shortness Of Breath) duloxetine 60 mg capsule,delayed release(DR/EC) 60 mg PO BEDTIME Changed ipratropium-albuterol 0.5 mg-3 mg(2.5 mg base)/3 mL solution for nebulization 3 ml INHALATION QID Qty: 90 0RF prednisone 20 mg tablet See Rx Instructions .ROUTE .COMPLEX Qty: 60 0RF Taper: predniSONE 60-10 60 mg Daily for 2 Days and 0 Hour 50 mg Daily for 2 Days and 0 Hour 40 mg Daily for 2 Days and 0 Hour 30 mg Daily for 2 Days and 0 Hour 20 mg Daily for 2 Days and 0 Hour 10 mg Daily for 2 Days and 0 Hour Rx Instructions: See Taper orally ;1 p.o. 3 times daily x3 days, 1 p.o. twice daily x2 days, 1 p.o. daily x2 days Discontinued doxycycline hyclate 100 mg capsule 100 mg PO BID 10 Days Qty: 20 0RF Discharge Orders: Discharge Order (Routine); Ordered 04/01/23 Ordered By: Tanika Lan Referrals: Datar,Sampson Cassidy MD [Physician] - 2 weeks (pulmonary nodules x 2 years, no clear diagnosis, at risk familial ca. Also with diagnosis of asthma/COPD We have notified your physician's clinic of the need for a follow-up appointment to be scheduled. If you have not heard from them within the next 2 business days, please call them directly. You may also reach out to our manager of product at [phone] and she can assist you.) Hoda Sanchez [Primary Care Provider] - 04/03/23 10:00 am (appointment will be in [facility]) Discharge Diet: Usual diet Discharge Activity: Resume usual activity Patient Instructions: Prednisone (By mouth), Levofloxacin (By mouth), Budesonide (By breathing) (Flex de Pulmicort, Pulmicort Flexhaler,..., Pantoprazole (By mouth), Viral Pneumonia (DC), COPD Stoplight, Opioid Safety Discharge Attestations Time Spent in Discharge Care*: greater than 30 min Quality Metrics Clinical Quality Measures [ No reported AMI, CVA or VTE this stay] Coding Level of Care Code Acute Code for Chg Fwd Diagnoses History of multiple pulmonary nodules Z87.898 History of prophylactic mastectomy of both breasts Z90.13 BRCA gene mutation positive Z15.01; Z15.09 Anxiety F41.9 Pneumonia J18.9 COPD exacerbation J44.1
[2023-04-02 07:09] LABS: THYROID PEROXIDASE ANTIBODIES 1 IU/mL (<9)
[2023-04-02 12:39] LABS: ANA PATTERN Nuclear, Speckled; ANA SCREEN, IFA POSITIVE (NEGATIVE); ANA TITER 1:40 titer
[2023-04-03 18:13] LABS: Fungitell 1-3-B Glucan Assay <31 pg/mL; Interpretation NEGATIVE
[2023-04-04 18:09] LABS: Aspergillus AG,EIA,Serum NOT DETECTED; Aspergillus Galactomannan Inde <0.50
[2023-04-07 06:41] LABS: Histoplasma Antigen Interpreta NEGATIVE; Histoplasma Antigen Specimen URINE
[2023-04-07 15:39] LABS: Blastomyces AB Immunodiffusion Negative (Negative); Blastomyces Dermatitidis AB <1:8 titer (<1:8)
[2023-04-07 21:59] LABS: Histoplasma Galactomannan Ag <0.2 ng/mL
[2023-04-09 18:14] LABS: Coccidioides AB CF Serum <1:2; Histoplasma capsulatum H Ab NEGATIVE; Histoplasma capsulatum M Ab POSITIVE
[2023-04-11 00:59] LABS: DNA AB (DS) CRITHIDIA,IFA NEGATIVE (NEGATIVE)
== END 2023-04-01 14:26 | disposition home or self-care (01) | DRG 190 ==
LOC: ER 23:23 → MEDSURG 23:44
PROVIDERS: Admitting Provider Family Medicine; Emergency Provider Emergency Medicine; PCP Registered Nurse; Visit Provider Student in an Organized Health Care Education/Training Program
DX: J44.1 Chronic obstructive pulmonary disease with (acute) exacerbation (principal); J18.9 Pneumonia, unspecified organism; J44.0 Chronic obstructive pulmonary disease with (acute) lower respiratory infection; B97.10 Unspecified enterovirus as the cause of diseases classified elsewhere; Z90.13 Acquired absence of bilateral breasts and nipples; Z80.3 Family history of malignant neoplasm of breast; R91.8 Other nonspecific abnormal finding of lung field; Z11.52 Encounter for screening for COVID-19; F12.90 Cannabis use, unspecified, uncomplicated; F41.9 Anxiety disorder, unspecified; M79.7 Fibromyalgia
CPT/HCPCS: 36415; 71275; 80048; 80074; 81001; 83036; 83880; 84145; 84443; 85007; 85025; 85027; 85378; 85651; 86140; 86160; 86162; 86235; 86255; 86376; 86403; 86612; 86635; 86698; 87040; 87070; 87205; 87305; 87385; 87449; 87486; 87581; 87633; 87806; 92610; 93005; 94640; 94664; 94760; 96365; 96366; 96367; 96375; 96376; 99291; J0456; J0696; J2060; J2920; J2930; J3475; J7030; J7050; J7626; Q9967

== ENCOUNTER → 2023-04-07 13:18 | Outpatient (BNVA) | payer MEDICARE, BC, SELFPAY | PROVIDERS: PCP Registered Nurse; Visit Provider Internal Medicine Pulmonary Disease | DX: Z09 Encounter for follow-up examination after completed treatment for conditions other than malignant neoplasm (principal); J44.9 Chronic obstructive pulmonary disease, unspecified; Z87.891 Personal history of nicotine dependence; J45.909 Unspecified asthma, uncomplicated; Z80.3 Family history of malignant neoplasm of breast; Z90.13 Acquired absence of bilateral breasts and nipples; R91.8 Other nonspecific abnormal finding of lung field | CPT/HCPCS: 99204 ==

== ENCOUNTER → 2023-07-31 10:02 | Outpatient (BNVA) | payer MEDICARE, BC, SELFPAY | PROVIDERS: PCP Registered Nurse; Visit Provider Internal Medicine Pulmonary Disease | DX: Z87.898 Personal history of other specified conditions (principal); J45.909 Unspecified asthma, uncomplicated; Z87.891 Personal history of nicotine dependence | CPT/HCPCS: 99214 ==